=== PATIENT | female | born 1960 | race Caucasian/White ===

== ENCOUNTER → 2016-05-28 | Outpatient (CLI) | payer OTHER ==
[~2016-05-28] MED LIST: DOCU-143 PO; EST.625T; ESTR0.5T PO; ESTR1TAB24 PO; FLX20C PO; HYDR-3812 PO; LEVO50TA PO; METO50TA7 PO; ONDA4TAB11 PO; OXYC-12 PO; SIMV40TA4 PO; SYNTHROID PO
--- OUTSIDE RECORDS SUMMARY | 2016-05-28 11:37 | XMS REPORT | Continuity of Care Document ---
Author Author [facility] Organization [facility] Address Unknown Phone Unavailable Care Team Providers Care Sack Cleaning Hand Name Role Phone Unverified, Unverified PCP Unavailable Source Comments Some departments are not documenting in the electronic medical record. If you do not see the information that you expected, contact Release of Information in the Health Information Management department at [phone] for further assistance in locating additional records.[facility] Active Allergies and Adverse Reactions No Known Allergies Current Medications Prescription Sig. Disp. Refills Start End Date Status Date LEVOTHYROXINE 50 mcg Take 50 mcg by mouth Active tablet Daily. fluoxetine (PROZAC) 20 mg Take 20 mg by mouth Active PO capsule Daily. metoprolol XL (TOPROL XL) Take 50 mg by mouth Active 50 mg PO tablet Daily. simvastatin (ZOCOR) 40 mg Take 40 mg by mouth Active PO tablet Daily. estradiol (ESTRACE) 1 mg Take 1 mg by mouth Daily. Active PO tablet Active Problems Problem Noted Date Depression 04/12/2010 Overview: Depression and anxiety. a. Started on Prozac. Hyperthyroidism 04/12/2010 Overview: Hyperthyroidism: TSH 06/27 of 0.04, being addressed by Dr. Clarke. Follow-up thyroid studies normal per patient. Continuing to monitor carefully. Patient has thyroid nodule. Hypercholesteremia 04/12/2010 Overview: 06/27 cholesterol profile: 218/61/64/142. Followed through Dr. Bolanos's and Tricia's office. ICD (implantable cardiac defibrillator), dual, in situ 05/31/2008 Overview: 1999 ICD implantation. Left chest dual-chamber, RA and RV leads in 1999 (although records unavailable secondary to NSVT placed by Dr. Sanchez. EP study done negative for inducible arrhythmias. 11/2004 Generator replacement with Guidant Vitality DS T125, serial # [id number], chronic RA lead 4464, serial # [id number] and chronic RV lead 0154, serial # [id number]. At ICD generator change, DFT equals 17 joules. 12/12/[address] Sam (EP). ICD placement agreed on by patient. Procedure date unknown. Symptoms of recurrent palpitations improved on Toprol, per records. 06/12/[address] Bolanos. ICD/PPM interrogated and reprogrammed. No events detected. Battery voltage 3.23, charge time 6.9, intrinsic V 4.1, R 10.4, impedance at atrium 445, at ventricular lead 530. Good threshold. Good capture. No changes to PPM settings. No events were recorded. Referred to Dr. Nelson due to relocation of local EP doctor. Two episodes of recurrent shocks since implant in 1999. One episode potentially SVT. Patient asymptomatic, sitting down and "charting". Received an ICD shock, to her knowledge,related to supraventricular arrhythmia. 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 Received multiple ICD shocks apparently for sinus tachycardia. No documented recurrent VT to date. Two zones programmed outside of our office and adjusted through Dr. Bolanos's office. VT at 165 with VF of 188. 05/31/08 ICD Generator Change to Anchor™ D22, Chronic Guidant RA lead 4464 & RV lead 0154 (1999). Paroxysmal ventricular tachycardia (HCC) Overview: History of nonsustained VT and ICD/PPM placement. a. Normal LV function, per patient's report. b. Indication for implant unclear, records unavailable. c. 1999 EP study negative. No records available, however as best as can be discerned, device implanted for VT-done at OSH. Palpitations Most Recent Encounters Date Type Specialty Providers Description 04/23/2016 Hospital Cardiology Blayne Nelson MD Encounter Social History Tobacco Use Types Packs/Day Years Used Date Never Smoker Smokeless Tobacco: Never Used Alcohol Use Drinks/Week oz/Week Comments No Last Filed Vital Signs Vital Sign Reading Time Taken Blood Pressure 110/70 01/15/2016 10:23 AM CDT Pulse 50 01/15/2016 10:23 AM CDT Temperature 36.4 C (97.5 F) 05/31/2008 10:37 AM CDT Respiratory Rate - - Height 1.651 m (5' 5") 01/15/2016 10:23 AM CDT Weight 75.297 kg (166 lb) 01/15/2016 10:23 AM CDT Body Mass Index 27.62 01/15/2016 10:23 AM CDT Oxygen Saturation 99% 05/31/2008 12:15 PM CDT Plan of Care Date Type Specialty Providers Description 07/18/2016 Appointment Cardiology Blayne Nelson MD [address] [facility] [address] [place] [address] [phone] (Fax) 07/18/2016 Appointment Cardiology Blayne Nelson MD [address] [facility] [address] [place] [address] [phone] (Fax) 07/23/2016 Appointment Cardiology Blayne Nelson MD [address] [facility] [address] [place] [address] [phone] (Fax) Health Maintenance Due Date Last Done Comments Hepatitis C Screening 1960 Physical (Comprehensive) 07/31/1967 Exam Pertussis Vaccine 07/31/1971 Tetanus Vaccine 1977 Cervical Cancer Screening 1981 Breast Cancer Screening 2000 Colorectal Cancer 2010 Screening Influenza Vaccine 11/21/2016 Results from Last 3 Months DEVICE EVALUATION - REMOTE ICD (04/24/2016 11:57 AM) Component Value Range Device Implanted By Blayne Nelson M.D. (gen chg.) Advisory Info First implant, 01/01/2000 ADRIA/EOL Indicator GREEN COFFEE BLENDER=2.63V Generator Carpenter Helper Maintenance Medtronic Generator Model # Secura DR [id number] Generator Serial # [id number] Generator Implnat Date 05/31/2008 Atrial Lead Carpenter Helper Maintenance Guidant Atrial Lead Model # 4464 Atrial Lead Serial # [id number] Atrial Lead Implant Date 01/01/2000 RV Lead Carpenter Helper Maintenance Guidant RV Lead Model # 154 RV Lead Serial # [id number] RV Lead Implant Date 01/01/2000 Pacemaker Dependant No Generator Investigational No Atrial Lead No Investigational RV Lead Investigational No Device Type VVI-ICD Wireless Generator Yes Device Mode VVI Lower Rate Limit 40 VT Monitor 150 VT Detect Rate (bpm) 167-188 VT Detect Rate Tx Burst(3), 35J, some OFF FVT Detect Rate (bpm) 188-250 FVT Detect Rate Tx Burst(1), 35J x5 VF Detect Rate (bpm) >188 VF Detect Rate Tx ATP During Charging, 35J x6 Mode Switch Status N/A Date of Last ICM 01/15/16 Evaluation HF Patient Yes Date of Last Programming 01/15/16 Next Programming Check TBD Due Next Remote Check Due 01/23/16 Remote Monitoring? Yes Daily [place] Threshld Off Alert? Average Venticular Rate Off AT/AF On/Off VF Detection/Therapy Off On Date of Last 01/15/16 Interrogation EP Device [facility] Name Device [place] Carelink Express Transmitter Compatible EP Device Followed By MAC Narrative Current Monitoring Period: 04/23/16 through 07/21/16 [04/24/2016 11:57:29 AM - RADHA CLARK] Scheduled Carelink transmission received.Device function appears normal. Battery voltage at 2.64V (ADRIA=2.63V). Events noted since 03/26/16: Ventricular:None. OptiVol and thoracic impedance trends currently do not suggest fluid overload. Please see scanned data sheets for further review as needed.I will route to MPE to sign who follows the patient.
--- NOTE | 2016-05-29 08:15 | ECHOCARDIOGRAPHY REPORT ---
PROCEDURE PHYSICIAN: PEDRO VICKERS DATE OF PROCEDURE: 05/28/2016 TWO DIMENSIONAL ECHOCARDIOGRAM REPORT PRIMARY PHYSICIAN: OTHER PHYSICIAN: REFERRING PHYSICIAN: Dr. Clarke ORDERING PHYSICIAN: INDICATION FOR THE PROCEDURE: Palpitation. MEASUREMENTS DERIVED VALUES LV DIAMETER (LAX) NORMALS NORMALS Diastolic 4.2 (3.6-5.2) Eject. Fract. 60% (60%+/-6%) Systolic (2.3-3.9) Diastolic Vol. % Shortening (0.22-0.42) Systolic Vol. Aortic Root IVS THICKNESS Diastolic 1.1 (0.6-1.1) LVPW THICKNESS Diastolic 1.1 (0.6-1.1) LA DIAMETER Systolic 3.1 (2.1-3.7) FINDINGS: 1. Technical quality is good. 2. The left ventricle is normal in size with normal contractility. Systolic function appeared to be normal. Estimated ejection fraction is 60%. 3. The left atrium is normal in size. No clot or thrombus were seen within the left atrium. 4. The right atrium and right ventricle are normal in size. No clot or thrombus were seen within the right side. 5. Mitral valve is normal in morphology with mild mitral regurgitation noted by color Doppler flow. No mitral valve prolapse. No mitral valve stenosis. 6. Aortic valve is trileaflet with normal opening and closing pattern. No significant aortic stenosis or regurgitation was seen. 7. Tricuspid valve is normal in morphology with mild tricuspid regurgitation noted by color Doppler flow. Doppler across tricuspid valve estimated pulmonary artery pressure of 29+ right atrial pressure. 8. Pulmonic valve is functioning normally. 9. No pericardial effusion. IN CONCLUSION: 1. Normal left ventricular size and systolic function. Estimated ejection fraction 60%. 2. Mild mitral and tricuspid regurgitation. 3. Estimated pulmonary artery pressure of 35 mmHg. Job ID: [id number] Dictated Date: 05/28/2016 17:08:05 Web Press Operator Assistant Date: 05/29/2016 08:13:02 / justine
== END ==
LOC: CARD 11:33
PROVIDERS: ATTEND Physician Assistant
DX: I34.0 Nonrheumatic mitral (valve) insufficiency (principal); E78.2 Mixed hyperlipidemia; R00.2 Palpitations; I47.2 Ventricular tachycardia
CPT/HCPCS: 93306

== ENCOUNTER → 2016-10-06 | Outpatient (CLI) | payer OTHER ==
--- NOTE | 2016-10-06 10:53 | Diagnostic Imaging Report ---
3 views of the thoracic spine. INDICATION: Back pain. FINDINGS: There is minimal left convexity curvature in the thoracic spine, could be positional. This is satisfactory alignment at the posterior spinal line. The vertebral body heights are preserved. Disc heights are also preserved. There are mild anterior osteophytes seen in the mid thoracic spine. Pacemaker with 2 leads is seen. IMPRESSION: Minimal left convexity curvature in the thoracic spine, could be positional. Minimal mid thoracic spine degenerative changes. Dictated by: Dictated on workstation # [id number]
== END ==
LOC: RAD 09:07
PROVIDERS: ATTEND Nurse Practitioner
DX: M54.6 Pain in thoracic spine (principal)
CPT/HCPCS: 72072

== ENCOUNTER → 2016-10-13 | Outpatient (CLI) | payer OTHER ==
[~2016-10-13] MED LIST changes: +CATHETER FLUSH 10 ML SYR IV PRN; +IOHEXOL 350 MG/ML 100 ML (OMNIPAQUE 350) VIAL IV ONE; +NS 100 ML (IVPB) BAG IV ONE
[2016-10-13 11:36] LABS: BLOOD UREA NITROGEN 11 MG/DL (7-18); BUN/CREATININE RATIO 15; CREATININE SERUM 0.75 MG/DL (0.60-1.30); GFR ESTIMATED > 60
--- NOTE | 2016-10-13 13:02 | Diagnostic Imaging Report ---
PROCEDURE: CT chest and abdomen with contrast. TECHNIQUE: Multiple contiguous axial images were obtained through the chest and abdomen after the administration of intravenous contrast. INDICATION: Right thoracic and back pain. Right upper quadrant abdominal pain. CONTRAST: 100 mL of Omnipaque 350 is administered intravenously. FINDINGS: CT chest: The lungs demonstrate no significant consolidation or mass. No suspicious nodule is seen. The thoracic aorta is normal in caliber. There is no mediastinal mass. The heart size is slightly prominent. No pericardial or pleural effusion is seen. No axillary lymphadenopathy is seen. There is a pacemaker seen in the left chest wall with right ventricular and right atrial leads. The osseous structures appear grossly unremarkable. CT abdomen: The liver, the spleen, the pancreas, and adrenal glands appear unremarkable. Colostomy clips are seen. The kidneys have symmetric enhancement and excretion. There is no hydronephrosis. The abdominal aorta is normal in caliber. No para-aortic significantly enlarged lymph nodes seen. The osseous structures appear grossly unremarkable. IMPRESSION: CT chest: The cardiac size is slightly prominent. No acute process. CT abdomen: Unremarkable exam. Dictated by: Dictated on workstation # [id number]
== END ==
LOC: RAD 10:51
PROVIDERS: ATTEND Internal Medicine
DX: M54.6 Pain in thoracic spine (principal); R10.11 Right upper quadrant pain; Z93.3 Colostomy status
CPT/HCPCS: 36415; 71260; 74160; 82565; 84520

== ENCOUNTER → 2016-11-03 | Outpatient (CLI) | payer OTHER ==
[~2016-11-03] MED LIST changes: -CATHETER FLUSH 10 ML SYR IV PRN; -IOHEXOL 350 MG/ML 100 ML (OMNIPAQUE 350) VIAL IV ONE; -NS 100 ML (IVPB) BAG IV ONE
--- NOTE | 2016-11-03 18:51 | Diagnostic Imaging Report ---
EXAMINATION: Digital mammogram bilateral screening with tomosynthesis. INDICATION: Screening. COMPARISON: This study was compared to the prior exam of 10/31/2015, 09/11/2014, and 08/18/2013. At this time, there are no current complaints. The current study was also evaluated with a Computer Aided Detection (CAD) system. FINDINGS: The fibroglandular tissue in both breasts is dense. This does limit the sensitivity of this exam. Overall, there does not appear to have been any significant change when compared to the prior study. No primary or secondary sign of malignancy is noted. 3D tomographic images fail to show any sign of malignancy. The battery pack overlying the pectoralis muscle on the left seen previously is again evident. IMPRESSION: No radiographic evidence for malignancy. ACR BI-RADS Category 1: Negative. Result letter will be mailed to the patient. Note: At least 10% of breast cancer is not imaged by mammography. Dictated by: Dictated on workstation # [id number]
== END ==
LOC: RAD 09:56
PROVIDERS: ATTEND Obstetrics & Gynecology
DX: Z12.31 Encounter for screening mammogram for malignant neoplasm of breast (principal)
CPT/HCPCS: 77067

== ENCOUNTER 2018-01-13 13:22 | Outpatient (CLI) | payer OTHER ==
[~2018-01-13] VITALS: Ht 165.1 cm; Wt 81.6 kg
[~2018-01-13 13:22] MED LIST changes: +ACHD5005 PO; +ASPI-586 PO; +FLUO20CA25 PO; -HYDR-3812 PO; +METO-370 PO
== END 2018-01-13 13:29 | disposition home or self-care (01) ==
LOC: PREOP 13:22
PROVIDERS: ATTEND Surgery
DX: Z01.818 Encounter for other preprocedural examination (principal)

== ENCOUNTER 2018-01-19 12:26 | Day surgery (SDC) | payer OTHER ==
[~2018-01-19] VITALS: Ht 165.1 cm; Wt 81.6 kg
--- OUTSIDE RECORDS SUMMARY | 2018-01-19 12:29 | XMS REPORT | Encounter Summary ---
Author Author [facility] Organization [facility] Address Unknown Phone Unavailable Care Team Providers Care Mortgage Assistant Name Role Phone Blayne Nelson MD Unavailable Abner Clarke MD PCP Encounter Details Date Type Department Care Team Description 12/16/2017 [facility] Cardiovascular Medicine Blayne Nelson MD Encounter Remote Device Check [address] [facility] [phone] [address] [place], [place] [phone] Social History Tobacco Use Types Packs/Day Years Used Date Never Smoker Smokeless Tobacco: Never Used Alcohol Use Drinks/Week oz/Week Comments No Sex Assigned at Date Recorded Not on file as of this encounter Medications at Time of Discharge Medication Sig. Disp. Refills Start Date End Date aspirin 81 mg chewable Chew 81 mg by mouth tablet daily. Take with food. estradiol (ESTRACE) 1 mg Take 1 mg by mouth Daily. PO tablet fluoxetine (PROZAC) 20 mg Take 20 mg by mouth PO capsule Daily. LEVOTHYROXINE 50 mcg Take 50 mcg by mouth tablet Daily. metoprolol XL (TOPROL XL) Take 50 mg by mouth 50 mg PO tablet Daily. simvastatin (ZOCOR) 40 mg Take 40 mg by mouth PO tablet Daily. as of this encounter Plan of Treatment Not on fileas of this encounter Procedures Procedure Name Priority Date/Time Associated Diagnosis Comments DEVICE EVALUATION - Routine 12/16/2017 ICD (implantable Results for this REMOTE ICD 12:05 PM CDT cardioverter-defibrillato procedure are in the r) in place results section. in this encounter Results * DEVICE EVALUATION - REMOTE ICD (12/16/2017 12:05 PM) Device Implanted By Blayne Nelson M.D. (gen chg.) OTHER OUTSIDE LAB Advisory Info First implant, 01/01/2000 OTHER OUTSIDE LAB ADRIA/EOL Indicator ROPE TOW OPERATOR=2.63V OTHER OUTSIDE LAB Generator Hog Dropper Medtronic OTHER OUTSIDE LAB Generator Implnat Date 03/18/2017 OTHER OUTSIDE LAB Atrial Lead Hog Dropper Guidant OTHER OUTSIDE LAB Atrial Lead Model # 4,464 OTHER OUTSIDE LAB Atrial Lead Serial # [id number] OTHER OUTSIDE LAB Atrial Lead Implant Date 01/01/2000 OTHER OUTSIDE LAB RV Lead Hog Dropper Guidant OTHER OUTSIDE LAB RV Lead Model # 154 OTHER OUTSIDE LAB RV Lead Serial # [id number] OTHER OUTSIDE LAB RV Lead Implant Date 01/01/2000 OTHER OUTSIDE LAB Pacemaker Dependant No OTHER OUTSIDE LAB Generator Investigational No OTHER OUTSIDE LAB Atrial Lead No OTHER OUTSIDE LAB Investigational RV Lead Investigational No OTHER OUTSIDE LAB Device Type VVI-ICD OTHER OUTSIDE LAB Wireless Generator Yes OTHER OUTSIDE LAB Device Mode VVI OTHER OUTSIDE LAB Lower Rate Limit 40 OTHER OUTSIDE LAB VT Monitor 162 OTHER OUTSIDE LAB VT Detect Rate (bpm) 176-194 OTHER OUTSIDE LAB VT Detect Rate Tx ATP, Shock OTHER OUTSIDE LAB FVT Detect Rate (bpm) 194-250 OTHER OUTSIDE LAB FVT Detect Rate Tx ATP, Shock OTHER OUTSIDE LAB VF Detect Rate (bpm) >250 OTHER OUTSIDE LAB VF Detect Rate Tx ATP During Charging, 35J x6 OTHER OUTSIDE LAB Mode Switch Status N/A OTHER OUTSIDE LAB HF Patient Yes OTHER OUTSIDE LAB Date of Last Programming 07/06/17 OTHER OUTSIDE LAB Date of Last Remote Check 12/16/17 OTHER OUTSIDE LAB Next Remote Check Due 02/2018 OTHER OUTSIDE LAB Remote Monitoring? Yes OTHER OUTSIDE LAB Daily [place] Threshld On OTHER OUTSIDE LAB Alert? Average Venticular Rate On OTHER OUTSIDE LAB AT/AF On/Off VF Detection/Therapy Off On OTHER OUTSIDE LAB EP Device Followed by Blayne Nelson M.D. (gen chg.) OTHER OUTSIDE LAB Name Device [place] Carelink Express OTHER OUTSIDE LAB Transmitter Compatible EP Device Followed By MARIN OTHER OUTSIDE LAB AT/AF Daily [place] Hours 6 OTHER OUTSIDE LAB Average Vent Rate during 100 OTHER OUTSIDE LAB AT/AF #BPM Average Vent Rate During 6 OTHER OUTSIDE LAB AT/AF #Hours Remote Connectivity Cellular Adaptor OTHER OUTSIDE LAB Accssory Serial Number WireX Cellular Adapter OTHER OUTSIDE LAB Known Diagnosed AFib No OTHER OUTSIDE LAB On Anticoagulation No OTHER OUTSIDE LAB Known Diagnosed VT VT Yes OTHER OUTSIDE LAB ATP No OTHER OUTSIDE LAB Device Shock No OTHER OUTSIDE LAB Device Remote Manual Yes OTHER OUTSIDE LAB Downloads Atrial Lead Fixation active fixation OTHER OUTSIDE LAB Atrial Lead Polarity Bipolar OTHER OUTSIDE LAB Atrial Lead Pin Connector IS1 OTHER OUTSIDE LAB RV Lead Fixation active fixation OTHER OUTSIDE LAB RV Lead Coil Dual OTHER OUTSIDE LAB Atrial Lead Diaph. na OTHER OUTSIDE LAB Stimulation RV Lead Diaph. na OTHER OUTSIDE LAB Stimulation Generator Model # EVERA XT [id number] OTHER OUTSIDE LAB Generator Serial # [id number] OTHER OUTSIDE LAB Date of Last 08/04/17 OTHER OUTSIDE LAB Interrogation Remote Check? Yes OTHER OUTSIDE LAB Narrative Performed At OTHER OUTSIDE LAB Current monitoring period 12/16/17 to 03/17/18. [12/16/2017 12:27:03 PM - PATRICA CHRISTINA] Scheduled Carelink transmission received for dual chamber ICD. Device function appears normal. Presenting EGM shows SB 47 bpm. Battery longevity 10.7 years. Events noted since 09/16/17: Atrial:0. Ventricular:0. Thoracic Impedance trend is stable for this patient. Please see scanned data sheets for further review. Next follow up appt 01/2018 MPR/device. Next remote scheduled for 02/2018. Results routed to E for signature and review. Performing Organization Address City/State/Zipcode Phone Number OTHER OUTSIDE LAB in this encounter Visit Diagnoses Diagnosis ICD (implantable cardioverter-defibrillator) in place
--- OUTSIDE RECORDS SUMMARY | 2018-01-19 12:29 | XMS REPORT | Clinical Summary ---
Author Author [facility] Organization [facility] Address Unknown Phone Unavailable Care Team Providers Care Warp Clamper Name Role Phone Blayne Nelson MD Unavailable Abner Clarke MD PCP Source Comments Some departments are not documenting in the electronic medical record. If you do not see the information that you expected, contact Release of Information in the Health Information Management department at [phone] for further assistance in locating additional records.[facility] Allergies No Known Allergies Current Medications Prescription Sig. [...] mg by mouth Daily. Active PO tablet aspirin 81 mg chewable Chew 81 mg by mouth Active tablet daily. Take with food. Active Problems Problem Noted Date Depression 04/12/2010 Overview: Depression and anxiety. a. Started on Prozac. Hyperthyroidism 04/12/2010 Overview: Hyperthyroidism: TSH 06/27 of 0.04, being addressed by Dr. Clarke. Follow-up thyroid studies normal per patient. Continuing to monitor carefully. Patient has thyroid nodule. Hypercholesteremia 04/12/2010 Overview: 06/27 cholesterol profile: 218/61/64/142. Followed through Dr. Bolanos's and Tricia's office. Dual implantable cardioverter-defibrillator in situ 05/31/2008 Overview: 2000 ICD implantation. Left chest dual-chamber, RA and RV leads in 1999 (although records unavailable secondary to NSVT placed by Dr. Sanchez. EP study done negative for inducible arrhythmias. 11/2004 Generator replacement with Guidant Vitality DS T125, serial # [id number], chronic RA lead 4464, serial # [id number] and chronic RV lead 0154, serial # [id number]. At ICD generator change, DFT equals 17 [...] of 188. 05/31/08 ICD Generator Change to TheOfficialBoardrafael SCHILLING D22, Chronic Guidant RA lead 4464 & RV lead 0154 (1999). Paroxysmal ventricular tachycardia (HCC) Overview: History of nonsustained VT and ICD/PPM placement. a. Normal LV function, per patient's report. b. Indication for implant unclear, records unavailable. c. 1999 EP study negative. No records available, however as best as can be discerned, device implanted for VT-done at OSH. Palpitations Encounters Date Type Specialty Care Team Description 12/16/2017 Hospital Cardiology Blayne Nelson MD Encounter from Last 3 Months Family History Medical History Relation Name Comments Hypertension Mother Stroke Mother Relation Name Status Comments Father Alive Mother (Age 77) Sister Alive Social History Tobacco Use Types Packs/Day Years Used Date Never Smoker Smokeless Tobacco: Never Used Alcohol Use Drinks/Week oz/Week Comments No Sex Assigned at Date Recorded Not on file Last Filed Vital Signs Vital Sign Reading Time Taken Blood Pressure 124/60 08/04/2017 11:56 AM CDT Pulse 52 08/04/2017 11:56 AM CDT Temperature 36.6 C (97.9 F) 03/18/2017 9:04 AM EXECUTIVE TALENT ACQUISITION CONSULTANT Respiratory Rate - - Oxygen Saturation 97% 08/04/2017 11:56 AM CDT Inhaled Oxygen - - Concentration Weight 80.7 kg (178 lb) 08/04/2017 11:56 AM CDT Height 165.1 cm (5' 5") 08/04/2017 11:56 AM CDT Body Mass Index 29.62 08/04/2017 11:56 AM CDT Plan of Treatment Health Maintenance Due Date Last Done Comments HEPATITIS C SCREENING 1960 PHYSICAL (COMPREHENSIVE) 07/31/1967 EXAM PERTUSSIS VACCINE 07/31/1971 HIV SCREENING 07/31/1975 TETANUS VACCINE 1977 CERVICAL CANCER SCREENING 1990 BREAST CANCER SCREENING 2000 COLORECTAL CANCER 2010 SCREENING SHINGLES RECOMBINANT 2010 VACCINE (1 of 2) INFLUENZA VACCINE 10/21/2017 Implants Implanted Type Area Market Master Device Expiration Model / Identifier Date Serial / Lot Medtronic ICD Procedures Procedure Name Priority Date/Time Associated Diagnosis Comments DEVICE EVALUATION - Routine 12/16/2017 ICD (implantable Results for this REMOTE ICD 12:05 PM CDT cardioverter-defibrillato procedure are in the r) in place results section. from Last 3 Months Results * DEVICE EVALUATION - REMOTE ICD (12/16/2017 12:05 PM) Device Implanted By Blayne Nelson M.D. (gen chg.) OTHER OUTSIDE LAB Advisory Info First implant, 01/01/2000 OTHER OUTSIDE LAB ADRIA/EOL Indicator CONSTRUCTION ESTIMATOR=2.63V OTHER OUTSIDE LAB Generator Market Master Medtronic OTHER OUTSIDE LAB Generator Implnat Date 03/18/2017 OTHER OUTSIDE LAB Atrial Lead Market Master Guidant OTHER OUTSIDE LAB Atrial Lead Model # 4,165 OTHER OUTSIDE LAB Atrial Lead Serial # [id number] OTHER OUTSIDE LAB Atrial Lead Implant Date 01/01/2000 OTHER OUTSIDE LAB RV Lead Market Master Guidant OTHER OUTSIDE LAB RV Lead Model # 154 OTHER OUTSIDE LAB RV Lead Serial # [id number] OTHER OUTSIDE LAB RV Lead Implant Date [...] Remote Monitoring? Yes OTHER OUTSIDE LAB Daily [place] Threshld On OTHER OUTSIDE LAB Alert? Average Venticular Rate On OTHER OUTSIDE LAB AT/AF On/Off VF Detection/Therapy Off On OTHER OUTSIDE LAB EP Device Followed by Blayne Nelson M.D. (gen chg.) OTHER OUTSIDE LAB Name Device [place] [facility]link Express OTHER OUTSIDE LAB Transmitter Compatible EP Device Followed By MARIN OTHER OUTSIDE LAB AT/AF Daily [place] Hours 6 OTHER OUTSIDE LAB Average Vent [...] LAB Stimulation Generator Model # EVERA XT [id number] OTHER OUTSIDE LAB Generator Serial # [id number] OTHER OUTSIDE LAB Date of Last 08/04/17 [...] Address City/State/Zipcode Phone Number OTHER OUTSIDE LAB from Last 3 Months
--- OUTSIDE RECORDS SUMMARY | 2018-01-19 12:30 | XMS REPORT | Continuity of Care Document ---
Author Author [facility] Organization [facility] Address Unknown Phone Unavailable Allergies Active Description Code Type Severity Reaction Onset Reported/Identified Relationship to Patient Clinical Status Yes No Known Drug Allergies [id number] Drug Allergy Mild N/A 09/02/2007 Medications There is no data. Problems Date Dx Coded Attending Type Code Diagnosis Diagnosed By 02/20/2014 BRENNAN GRAY MD Ot 723.1 02/20/2014 BRENNAN GRAY MD Ot V57.1 03/23/2014 BRENNAN GRAY MD Ot 723.1 03/23/2014 BRENNAN GRAY MD Ot 782.0 03/23/2014 BRENNAN GRAY MD Ot 723.1 03/23/2014 BRENNAN GRAY MD Ot V57.1 03/23/2014 MURIEL ARELLANO MD Ot 873.0 03/23/2014 ADAN TRISTAN, MURIEL D Ot 959.01 03/23/2014 MURIEL ARELLANO MD Ot E000.8 03/23/2014 ADAN TRISTAN, MURIEL Holman Ot E849.0 03/23/2014 MURIEL ARELLANO MD D Ot E884.2 03/23/2014 MURIEL ARELLANO MD Ot V06.1 04/13/2014 BRENNAN GRAY MD Ot 723.1 04/13/2014 BRENNAN GRAY MD Ot V57.1 04/18/2014 BRENNAN GRAY MD Ot 723.1 04/18/2014 BRENNAN GRAY MD Ot V57.1 04/21/2014 BRENNAN GRAY MD Ot 723.1 04/21/2014 BRENNAN GRAY MD Ot V57.1 09/29/2014 SOFIA TRISTAN, BRAYDEN Romero Ot V76.12 11/06/2014 ERNIE WILLS APRN Ot 789.04 12/26/2014 PEDRO VICKERS MD Ot 416.8 12/26/2014 PEDRO VICKERS MD Ot 424.0 12/26/2014 ALEE TRISTAN, PEDRO Layne Ot 424.2 12/26/2014 PEDRO VICKERS MD Ot 785.1 01/04/2015 MAIRNA TRISTAN, BRENNAN Hloman Ot 723.1 01/04/2015 BRENNAN GRAY MD Ot 782.0 01/04/2015 SOFIA TRISTAN, BRAYDEN Romero Ot V76.12 01/04/2015 ERNIE WILLS APRN Ot 789.04 01/04/2015 [place] SORAIDA MEHTA Ot K82.4 01/04/2015 [place] SORAIDA MEHTA Ot Z01.818 01/04/2015 [place] SORAIDA MEHTA Ot Z11.2 01/04/2015 PEDRO VICKERS MD Ot 416.8 01/04/2015 ALEE TRISTAN, PEDRO Layne Ot 424.0 01/04/2015 PEDRO VICKERS MD Ot 424.2 01/04/2015 PEDRO VICKERS MD Ot 785.1 01/04/2015 [place] SORAIDA MEHTA Ot K81.1 11/01/2015 BRAYDEN BLACK MD Ot Z12.31 ENCNTR SCREEN MAMMOGRAM FOR MALIGNANT NE 11/02/2015 BRAYDEN BLACK MD Ot Z12.31 ENCNTR SCREEN MAMMOGRAM FOR MALIGNANT NE 05/28/2016 BRAYDEN BLACK MD Ot Z12.31 ENCNTR SCREEN MAMMOGRAM FOR MALIGNANT NE 05/29/2016 JULIA MARY Ot E78.2 MIXED HYPERLIPIDEMIA 05/29/2016 JULIA MARY Ot I34.0 NONRHEUMATIC MITRAL (VALVE) INSUFFICIENC 05/29/2016 JULIA MARY Ot I47.2 VENTRICULAR TACHYCARDIA 05/29/2016 JULIA MARY Ot R00.2 PALPITATIONS 06/03/2016 JULIA MARY Ot E78.2 MIXED HYPERLIPIDEMIA 06/03/2016 JULIA MARY Ot I34.0 NONRHEUMATIC MITRAL (VALVE) INSUFFICIENC 06/03/2016 JULIA MARY Ot I47.2 VENTRICULAR TACHYCARDIA 06/03/2016 JULIA MARY Ot R00.2 PALPITATIONS 09/17/2016 JULIA MARY Ot E78.2 MIXED HYPERLIPIDEMIA 09/17/2016 JULIA MARY Ot I34.0 NONRHEUMATIC MITRAL (VALVE) INSUFFICIENC 09/17/2016 JULIA MARY Ot I47.2 VENTRICULAR TACHYCARDIA 09/17/2016 JULIA MARY Ot R00.2 PALPITATIONS 11/12/2016 BRENNAN GRAY MD Ot M54.6 PAIN IN THORACIC SPINE 11/12/2016 BRENNAN GRAY MD Ot R10.11 RIGHT UPPER QUADRANT PAIN 11/12/2016 BRENNAN GRAY MD Ot Z93.3 COLOSTOMY STATUS 01/13/2018 SORAIDA VANCE DO Ot Z01.818 ENCOUNTER FOR OTHER PREPROCEDURAL EXAMIN 01/13/2018 SORAIDA VANCE DO, Ot Z01.818 ENCOUNTER FOR OTHER PREPROCEDURAL EXAMIN 01/13/2018 SORAIDA VANCE DO, Ot Z01.818 ENCOUNTER FOR OTHER PREPROCEDURAL EXAMIN Procedures There is no data. Results Test Result Range [id number] - 10/13/16 11:13 Serum or plasma urea nitrogen measurement (mass/volume) 11 mg/dL 7-18 Serum or plasma creatinine measurement (mass/volume) 0.75 mg/dL 0.60-1.30 Serum or plasma urea nitrogen/creatinine mass ratio 15 NRG Serum or plasma creatinine measurement with calculation of estimated glomerular filtration rate > NRG Encounters ACCT No. Visit Date/Time Discharge Status Pt. Type Provider Facility Loc./Unit Complaint [id number] 01/12/2018 05:34:00 01/12/2018 23:59:59 CLS Outpatient SORAIDA VANCE DO [facility] PREOP COLONOSCOPY [id number] 11/03/2016 09:56:00 11/03/2016 23:59:59 CLS Outpatient BRAYDEN BLACK MD [facility] RAD SCREENING Z12.31 [id number] 10/22/2016 08:55:00 10/22/2016 23:59:59 CLS Preadmit ERNIE WILLS APRN [facility] REHAB THORACIC PAIN/SPASM/ MINIMAL DEG CHANGES [id number] 10/13/2016 10:51:00 10/13/2016 23:59:59 CLS Outpatient BRENNAN GRAY MD [facility] RAD RT THORACIC BACK PAIN [id number] 10/06/2016 09:07:00 10/06/2016 23:59:59 CLS Outpatient ERNIE WILLS APRN [facility] RAD BACK PAIN [id number] 05/28/2016 11:33:00 05/28/2016 23:59:59 CLS Outpatient JULIA MARY [facility] CARD MR, PALPITATIONS [id number] 10/31/2015 09:48:00 10/31/2015 23:59:59 CLS Outpatient BRAYDEN BLACK MD [facility] RAD ROUTINE SCREENING [id number] 01/04/2015 06:00:00 01/04/2015 13:20:00 DIS Outpatient SORAIDA VANCE DO [facility] SDC [id number] 12/28/2014 09:56:00 12/28/2014 23:59:59 CLS Outpatient SORAIDA VANCE DO [facility] PREOP [id number] 12/11/2014 09:46:00 12/11/2014 23:59:59 CLS Outpatient PEDRO VICKERS MD [facility] CARD [id number] 10/18/2014 07:57:00 10/18/2014 23:59:59 CLS Outpatient ERNIE WILLS APRN [facility] RAD [id number] 09/11/2014 11:11:00 09/11/2014 23:59:59 CLS Outpatient BRAYDEN BLACK MD [facility] RAD [id number] 03/22/2014 08:30:00 04/21/2014 10:52:00 DIS Outpatient BRENNAN GRAY MD [facility] REHAB [id number] 03/23/2014 12:44:00 03/23/2014 14:04:00 DIS Emergency MURIEL ARELLANO MD [facility] ER [id number] 01/04/2014 10:04:00 01/04/2014 23:59:59 CLS Outpatient BRENNAN GRAY MD [facility] RAD [id number] 08/18/2013 08:50:00 08/18/2013 23:59:59 CLS Outpatient [id number] 01/16/2013 09:58:00 01/16/2013 10:00:00 DIS Emergency [id number] 11/10/2012 08:54:00 11/10/2012 23:59:59 CLS Outpatient [id number] 08/02/2012 11:04:00 08/02/2012 23:59:59 CLS Outpatient [id number] 01/19/2018 12:45:00 PEN Preadmit SORAIDA VANCE DO [facility] ENDO SCREENING
[2018-01-19] MEDS ORDERED: LACTATED RINGERS 1,000 ML IV STA (12:37)
[2018-01-19] MEDS ORDERED: LACTATED RINGERS 1,000 ML IV ONE (12:37)
[2018-01-19 12:49] VITALS: BP 121/64
[2018-01-19] MEDS ORDERED: proPOfol 200 MG/20 ML (DIPRIVAN) VIAL IV ONE (13:03)
[2018-01-19] MEDS ORDERED: MIDAZOLAM 2 MG/2 ML (VERSED) VIAL ONE (13:03)
--- NOTE | 2018-01-19 13:06 | Progress Note-Pre Operative ---
Pre-Operative Progress Note H&P Reviewed The H&P was reviewed, patient examined and no changes noted. Date Seen by Provider: Jan 19, 2018 Time Seen by Provider: 13:05 Date H&P Reviewed: Jan 19, 2018 Time H&P Reviewed: 13:05 Pre-Operative Diagnosis: screening colonoscopy, family history colon cancer SORAIDA VANCE DO Jan 19, 2018 13:05
--- NOTE | 2018-01-19 14:20 | Progress Note-Post Operative ---
Post-Operative Progess Note Surgeon (s)/Mechanical Artist (s) Surgeon SORAIDA VANCE DO Mechanical Artist: na Pre-Operative Diagnosis screening colonoscopy, family history colon cancer Post-Operative Diagnosis normal colon Procedure & Operative Findings Date of Procedure 01/19/18 Procedure Performed/Findings colonoscopy Anesthesia Type per revenue liaison Estimated Blood Loss Estimated blood loss (mL): none Specimens/Packing Specimens Removed na SORAIDA VANCE DO Jan 19, 2018 14:20
--- NOTE | 2018-01-19 14:22 | Discharge Inst-Simple/Standard ---
Discharge Inst-Standard Patient Instructions/Follow Up Plan of Care/Instructions/FU: return to clinic on as needed basis. repeat colonoscopy in 5 years, any issues before that be seen at that time. Activity as Tolerated: Yes Discharge Diet: Regular Diet SORAIDA VANCE DO Jan 19, 2018 14:22
[2018-01-19 14:30] VITALS: BP 104/51
[2018-01-19 15:00] VITALS: BP 105/46
[2018-01-19 15:20] VITALS: BP 105/46
--- NOTE | 2018-01-19 19:18 | OPERATIVE REPORT ---
DATE OF SERVICE: 01/19/2018 PREOPERATIVE DIAGNOSES: Screening colonoscopy, family history of colon cancer. POSTOPERATIVE DIAGNOSIS: Normal colon. SURGEON: Soraida Guevara DO. PROCEDURE PERFORMED: Colonoscopy. ANESTHESIA: Per PATIENT ACCESS DIRECTOR. ESTIMATED BLOOD LOSS: None. COMPLICATIONS: None. INDICATIONS: The patient is a 57-year-old female due for screening colonoscopy. She understands risks and benefits of procedure and wished to proceed with procedure. Consent was signed in the chart. DESCRIPTION OF PROCEDURE: The patient was taken to the endoscopy suite, placed in left lateral recumbent position. Timeout was performed. Digital rectal exam was performed. No palpable polyps, mass or ulcerations. The scope was inserted in the rectum and advanced all the way to the cecum with minimal difficulty. Prep was adequate. Scope was then slowly retracted back. There were no polyps, masses or ulcerations in the cecum, ascending, transverse, descending and sigmoid colon. Once in the rectum, scope was retroflexed noting no other pathology. Scope was returned to its normal position, slowly withdrawn until completely removed, noting no other pathology. The patient tolerated the procedure. She was taken to recovery room in stable condition. RECOMMENDATIONS: The patient will need repeat colonoscopy in 5 years. If she has any problems prior to that, she should be reevaluated at that time. Job ID: [id number] DocumentID: [id number] Dictated Date: 01/19/2018 14:24:49 Dovetail Machine Operator Date: 01/19/2018 19:17:28 Dictated By: SORAIDA GUEVARA DO
== END 2018-01-19 15:15 | disposition home or self-care (01) ==
LOC: ENDO 12:26
PROVIDERS: ATTEND Surgery
DX: Z12.11 Encounter for screening for malignant neoplasm of colon (principal); Z80.0 Family history of malignant neoplasm of digestive organs; I10 Essential (primary) hypertension; I27.20 Pulmonary hypertension, unspecified; I08.1 Rheumatic disorders of both mitral and tricuspid valves; Z79.82 Long term (current) use of aspirin; Z79.899 Other long term (current) drug therapy; Z95.810 Presence of automatic (implantable) cardiac defibrillator

== ENCOUNTER → 2018-02-02 | Outpatient (CLI) | payer OTHER ==
--- NOTE | 2018-02-03 10:54 | Diagnostic Imaging Report ---
Indication: Routine screening. Comparison is made with prior mammograms from 11/03/2016 and 10/31/2015. 2-D and 3-D bilateral screening mammography was performed with CAD. Both breasts remain heterogeneously dense, limiting the sensitivity of mammography. The parenchymal pattern is stable. The pacemaker battery pack in the left axilla does limit the study. No mass or malignant appearing microcalcifications are seen. Benign calcifications are present. Impression: BI-RADS category 2. No mammographic features suspicious for malignancy are identified. ACR BI-RADS Category 2: Benign findings. Result letter will be mailed to the patient. Note: At least 10% of breast cancer is not imaged by mammography. Dictated by: Dictated on workstation # [id number]
== END ==
LOC: RAD 09:37
PROVIDERS: ATTEND Obstetrics & Gynecology
DX: Z12.31 Encounter for screening mammogram for malignant neoplasm of breast (principal)
CPT/HCPCS: 77067

== ENCOUNTER → 2018-11-29 | Outpatient (CLI) | payer OTHER ==
[~2018-11-29] MED LIST changes: +HOLD METFORMIN - RECEIVED CONTRAST 20 ML VIAL IV SCH; +IOHEXOL 350 MG/ML 100 ML (OMNIPAQUE 350) VIAL IV ONE; +NS 100 ML (IVPB) BAG IV ONE
--- NOTE | 2018-11-29 08:49 | Diagnostic Imaging Report ---
PROCEDURE: CT abdomen and pelvis with contrast. TECHNIQUE: Multiple contiguous axial images were obtained through the abdomen and pelvis after administration of intravenous contrast. Auto Exposure Controls were utilized during the CT exam to meet ALARA standards for radiation dose reduction. INDICATION: Right lower pelvic pain. Correlation is made with prior CT abdomen from 10/13/2016. FINDINGS: The lung bases are clear. No discrete liver mass is identified. The gallbladder is surgically absent. No biliary ductal dilatation is seen. The pancreas and spleen are unremarkable. No adrenal mass is detected. Kidneys are unremarkable. No hydronephrosis is detected. The aorta is nonaneurysmal. No central retroperitoneal or mesenteric lymphadenopathy is identified. The small and large bowel loops are normal caliber. No obstruction is seen. There is no ascites. Partially filled urinary bladder is unremarkable. Uterus appears to be surgically absent. No definite pelvic lymphadenopathy is seen. No inflammatory changes are identified. IMPRESSION: Essentially unremarkable CT of the abdomen and pelvis. No acute abnormality is detected. Dictated by: Dictated on workstation # [id number]
== END ==
LOC: RAD 08:00
PROVIDERS: ATTEND Internal Medicine
DX: R10.2 Pelvic and perineal pain (principal); Z90.49 Acquired absence of other specified parts of digestive tract
CPT/HCPCS: 74177

== ENCOUNTER → 2019-02-21 | Outpatient (CLI) | payer OTHER ==
[~2019-02-21] MED LIST changes: -HOLD METFORMIN - RECEIVED CONTRAST 20 ML VIAL IV SCH; -IOHEXOL 350 MG/ML 100 ML (OMNIPAQUE 350) VIAL IV ONE; -NS 100 ML (IVPB) BAG IV ONE
== END ==
LOC: CARD 10:25
PROVIDERS: ATTEND Physician Assistant
DX: I08.1 Rheumatic disorders of both mitral and tricuspid valves (principal); E78.2 Mixed hyperlipidemia; I27.20 Pulmonary hypertension, unspecified; I47.2 Ventricular tachycardia
CPT/HCPCS: 93306

== ENCOUNTER → 2019-08-24 | Outpatient (CLI) | payer OTHER ==
[~2019-08-24] MED LIST changes: -FLUO20CA25 PO; +FLUO20CA46 PO; -METO-370 PO; +SIMV40TA25 PO; -SIMV40TA4 PO
--- NOTE | 2019-08-24 11:03 | Diagnostic Imaging Report ---
INDICATION: Routine screening. Comparison is made with prior mammogram 02/02/2018 and 11/03/2016. 2-D and 3-D bilateral screening mammography was performed with CAD. The current study was also evaluated with a Computer Aided Detection (CAD) system. Both breasts remain heterogeneously dense, limiting the sensitivity of mammography. There are benign parenchymal and vascular calcifications bilaterally. The parenchymal pattern is stable. Pacemaker battery pack does obscure portions of the left breast. No mass or malignant appearing microcalcifications are seen. Axillae are unremarkable. IMPRESSION: No mammographic features suspicious for malignancy are identified. ACR BI-RADS Category 2: Benign findings. Result letter will be mailed to the patient. Note: At least 10% of breast cancer is not imaged by mammography. Dictated by: Dictated on workstation # [id number]
== END ==
LOC: RAD 09:29
PROVIDERS: ATTEND Obstetrics & Gynecology
DX: Z12.31 Encounter for screening mammogram for malignant neoplasm of breast (principal); Z95.0 Presence of cardiac pacemaker
CPT/HCPCS: 77063; 77067

== ENCOUNTER → 2020-09-12 | Outpatient (CLI) | payer OTHER ==
--- NOTE | 2020-09-12 14:15 | Diagnostic Imaging Report ---
INDICATION: Routine screening. Comparison is made with prior mammogram 08/24/2019, 02/02/2018. 2-D and 3-D bilateral screening mammography was performed with CAD. Both breast are heterogeneously dense, limiting the sensitivity of mammography. Pacemaker battery pack is located left axilla. Overall breast parenchyma appears to be stable. No mass or malignant appearing microcalcifications are seen. There are scattered benign calcifications present. Right axilla is unremarkable. IMPRESSION: BI-RADS Category 2 No mammographic features suspicious for malignancy are identified. ACR BI-RADS Category 2: Benign findings. Result letter will be mailed to the patient. Note: At least 10% of breast cancer is not imaged by mammography. Dictated by: Dictated on workstation # [id number]
== END ==
LOC: RAD 10:48
PROVIDERS: ATTEND Obstetrics & Gynecology
DX: Z12.31 Encounter for screening mammogram for malignant neoplasm of breast (principal)
CPT/HCPCS: 77063; 77067

== ENCOUNTER → 2021-09-16 | Outpatient (CLI) | payer OTHER ==
[~2021-09-16] MED LIST changes: -FLUO20CA46 PO; +FLUO20CA48 PO
--- NOTE | 2021-09-16 14:03 | Diagnostic Imaging Report ---
Indication: Routine screening. Comparison is made with prior mammogram 09/12/2020 and 08/24/2019. 2-D and 3-D bilateral screening mammography was performed with CAD. CAD is utilized. The current study was also evaluated with a Computer Aided Detection (CAD) system. Both breasts are heterogeneously dense, limiting the sensitivity of mammography. The parenchymal pattern is stable. No mass or malignant-appearing microcalcifications are seen. There are scattered benign parenchymal and vascular calcifications bilaterally. Pacemaker battery package is located in left axilla. IMPRESSION: BI-RADS Category 2 No mammographic features suspicious for malignancy are identified. ACR BI-RADS Category 2: Benign findings. Result letter will be mailed to the patient. Note: At least 10% of breast cancer is not imaged by mammography. Dictated by: Dictated on workstation # [id number]
== END ==
LOC: RAD 09:47
PROVIDERS: ATTEND Obstetrics & Gynecology
DX: Z12.31 Encounter for screening mammogram for malignant neoplasm of breast (principal)
CPT/HCPCS: 77063; 77067

== ENCOUNTER → 2022-04-30 | Outpatient (CLI) | payer OTHER ==
[~2022-04-30] MED LIST changes: +REGADENOSON 0.4 MG/5 ML SYR (LEXISCAN) IV ONE
[2022-04-30] MEDS: CATHETER FLUSH 10 ML SYR IVP PRN ×2 (12:00→12:56)
[2022-04-30 12:52] VITALS: BP 132/68
== END ==
LOC: CARD 10:38
PROVIDERS: ATTEND Physician Assistant
DX: I10 Essential (primary) hypertension (principal)
CPT/HCPCS: 78452; 93017; A9502; C8929; 93306

== ENCOUNTER 2022-05-14 09:00 | Day surgery (SDC) | payer OTHER ==
[~2022-05-14] VITALS: Ht 165.1 cm; Wt 91.5 kg
[2022-05-14] VITALS (9 sets, daily range): BP systolic 102–140; BP diastolic 40–66
--- NOTE | 2022-05-14 07:36 | Diagnostic Imaging Report ---
EXAMINATION: Chest radiograph, portable AP view. DATE: 05/14/2022 7:23 AM. INDICATION: 61-year-old female, abnormal stress test. Chest pain. COMPARISON: None. FINDINGS: There is a left-sided cardiac assist device and leads. The leads appear intact. Heart size and mediastinal contours are unremarkable. There is no identified pneumothorax. There is no large pleural effusion. There is no identified focal airspace consolidation. IMPRESSION: No identified acute cardiopulmonary abnormality. Dictated by: Dictated on workstation # [id number]
--- NOTE | 2022-05-14 07:47 | Cardiac Procedure Note-CS/ASA ---
Pre-Procedure Note Pre-Op Procedure Note Date of Available H&P: May 05, 2022 Date H&P Reviewed: May 14, 2022 Time H&P Reviewed: 07:46 History & Physical: H&P Reviewed, Patient Examed, No changes noted Pre-Operative Diagnosis: CAD Conscious Sedation Pre-Proced Time 07:46 ASA Score 3 For ASA 3 and 4: Consider anesthesia and medical clearance. Also, for patients with a history of failed moderate sedation consider anesthesia. Airway Lungs Heart ASA score ASA 1: a normal healthy patient ASA 2: a patient with a mild systemic disease (mid diabetes, controlled hypertension, obesity ASA 3: a patient with a severe systemic disease that limits activity (angina, COPD, prior Myocardial infarction) ASA 4: a patient with an incapacitating disease that is a constant threat to life (CHF, renal failure) ASA 5: a moribund patient not expected to survive 24 hrs. (ruptured aneurysm) ASA 6: a declared brain- patient whose organs are being harvested. For emergent operations, add the letter E after the classification Mallampati Classification Grade 3 Sedation Plan Analgesia, Amnesia, Plan communicated to team members, Discussed options with patient/fam, Discussed risks with patient/fam The patient is an appropriate candidate to undergo the planned procedure, sedation, and anesthesia. The patient immediately re-assessed prior to indication. PEDRO VICKERS MD May 14, 2022 07:47
[2022-05-14 07:50] LABS: CLARITY,URINE SL CLOUDY; COLOR,URINE DARK YELLOW; GLUCOSE, URINE (UA) NEGATIVE (NEGATIVE); KETONES,URINE NEGATIVE (NEGATIVE); LEUKOCYTE ESTERASE ,URINE NEGATIVE (NEGATIVE); NITRITE,URINE NEGATIVE (NEGATIVE); PROTEIN,URINE 1+ (NEGATIVE)
[2022-05-14 07:51] LABS: HEMATOCRIT 38 % (35-52); HEMOGLOBIN 12.7 g/dL (11.5-16.0); MEAN CORPUSCULAR HEMOGLOBIN 29 pg (25-34); MEAN CORPUSCULAR HGB CONC 33 g/dL (32-36); MEAN CORPUSCULAR VOLUME 87 fL (80-99); MEAN PLATELET VOLUME 9.4 fL (9.0-12.2); PLATELET COUNT 222 10^3/uL (130-400); WHITE BLOOD COUNT 5.2 10^3/uL (4.3-11.0)
[2022-05-14 08:08] LABS: BILIRUBIN,URINE 1+ (NEGATIVE)
[2022-05-14 08:09] LABS: BACTERIA,URINE FEW /HPF; RBC,URINE RARE /HPF; WBC,URINE RARE /HPF
[2022-05-14 08:10] LABS: ALBUMIN 4.1 GM/DL (3.2-4.5); BILIRUBIN,TOTAL 0.6 MG/DL (0.1-1.0); CALCIUM 8.9 MG/DL (8.5-10.1); CREATININE SERUM 0.77 MG/DL (0.60-1.30); POTASSIUM 3.9 MMOL/L (3.6-5.0); TOTAL PROTEIN 7.2 GM/DL (6.4-8.2)
--- NOTE | 2022-05-14 08:40 | Discharge Inst-Post CATH ---
Discharge Inst-CATH/EP Problems Reviewed?: Yes Post Cardiac Cath/EP D/C Inst Follow Up/Plan Appointment with Dr. Bolanos's office in 2 to 4 weeks <b>CARDIAC CATH/EP PROCEDURE DISCHARGE INSTRUCTIONS</b> ACTIVITY * Go Home directly and rest. * Limit activity of the leg (or wrist if it was used) for 7 days including aer obics, swimming, jogging, bicycling, etc. * Restrict stair-climbing for 7 days if possible, if not, climb up with your non-cath leg, then bring together on the same step. * Avoid lifting, pushing, pulling or excessive movement of the affected extremi ty for 7 days. * Customary sexual activity may be resumed after 2 days-use caution not to use a position that strains or causes pain to the affected extremity. * No driving for 24 hours. * NO SMOKING. * Avoid straining for bowel movements for 7 days. * Gentle walking on level ground is allowed. * Returning to work will depend on the type of procedure and the results. Your doctor will discuss this with you. CALL YOUR DOCTOR FOR ANY OF THE FOLLOWING: *If bleeding from the puncture site occurs- Apply gentle pressure to site with clean cloth and call your doctor or EMS. * If a knot or lump forms under the skin, increases in size, or causes pain. * If bruising appears to be worsening or moving further down your leg instead of disappearing. * Temperature above 101 F. CARE OF YOUR GROIN INCISION; * Bruising or purple discoloration of the skin near the puncture site is common. * You may shower only, no bathtub bathing for 5 days. Be careful to avoid slipping as your leg may feel stiff. * If a closure device was used on your femoral artery, please see the attached guide regarding care of the device and your leg. * Leave dressing on FOR 24 hours. CARE OF YOUR WRIST INCISION; * Bruising or purple discoloration of the skin near the puncture site is common. * You may shower. * DO NOT submerge wrist. * Leave dressing on FOR 24 hours. PEDRO BOLANOS MD May 14, 2022 08:40
--- NOTE | 2022-05-14 08:43 | Cardiac Cath Report ---
Cardiac Cath Report Physician (s)/Senior Adults Director (s) Physician PEDRO VICKERS MD Pre-Procedure Diagnosis Pre-Procedure Diagnosis: CAD Post-Procedure Note Procedure Start Date: May 14, 2022 Name of Procedure: Left heart catheterization Findings/Procedure Note PROCEDURE NOTE: 61-year-old lady with history of ventricular tachycardia, has ICD, had an abnormal stress test, scheduled for cardiac catheterization possible PTCA. After explaining the procedure to the patient, all pros and cons were explained, all questions were answered. The patient signed the consent and then she was placed in the cardiac catheterization laboratory. Groin was prepped in SL fashion local anesthesia was used. Sheath placed in the right radial artery, [place] catheter was advanced to the left ventricular cavity, pressure was measured, pullback LV to aorta was done, engage the right and left coronary system, angiogram was done. At the end of the procedure the sheath was removed. Vascular band was used FINDINGS: Hemodynamics LV 110/9, end-diastolic pressure of 9 Aorta 130/73 mean of 75 ANATOMY: Left Main is free of obstructive disease Left Anterior Descending is free of obstructive disease Left Circumflex is free of obstructive disease Right Coronary Artery is dominant artery with mild disease nonobstructive disease LV Gram was not done, pressure was measured CONCLUSION: Mild coronary artery disease nonobstructive disease Normal left ventricular end-diastolic pressure DISCUSSION AND RECOMMENDATION: Abnormal stress test is probably due to extracardiac attenuation or paced rhythm. Anesthesia Type: Conscious Sedation Estimated blood loss (mL): 10 ml Contrast Amount: 23 ml Total Radiation Dose: 145 mGy Post-Procedure Diagnosis Post-operative diagnosis: Coronary artery disease Ventricular tachycardia Hypertension Hyperlipidemia PEDRO VICKERS MD May 14, 2022 08:43
[~2022-05-14 09:00] MED LIST changes: +HEParin (CATH LAB) 2,000 ML IV ONE; +HEParin 1000 UNIT/ML (10ML VIAL) FOR BOLUS ONE; +LIDOCAINE 1% INJ 20 ML VIAL ONE; +MIDAZOLAM 5 MG/5 ML (VERSED) VIAL ONE; +NITRO DRIP 25000 MCG/D5W 250 ML IV ONE; +NS IV 1000 ML 1,000 ML IV SCH; +NS IV 1000 ML 1,000 ML ONE; -REGADENOSON 0.4 MG/5 ML SYR (LEXISCAN) IV ONE; +VERAPAMIL 5 MG/2 ML (CALAN) VIAL IV ONE; +fentaNYL INJ 100 MCG/2 ML AMP ONE
== END 2022-05-14 11:00 | disposition home or self-care (01) ==
LOC: CATH 09:00 → SDC 09:01 → CATH 11:00
PROVIDERS: ATTEND Internal Medicine Cardiovascular Disease
DX: I25.10 Atherosclerotic heart disease of native coronary artery without angina pectoris (principal); I47.20 Ventricular tachycardia, unspecified; I10 Essential (primary) hypertension; E78.2 Mixed hyperlipidemia; E66.9 Obesity, unspecified; I34.0 Nonrheumatic mitral (valve) insufficiency; Z79.82 Long term (current) use of aspirin; I27.20 Pulmonary hypertension, unspecified; E89.0 Postprocedural hypothyroidism; I65.23 Occlusion and stenosis of bilateral carotid arteries; Z79.890 Hormone replacement therapy; Z68.33 Body mass index [BMI] 33.0-33.9, adult
CPT/HCPCS: 71045; 80053; 80061; 81000; 85027; 85610; 85730; 87081; 87088; 93005; 93458; C1894; 36415

== ENCOUNTER 2022-06-11 05:40 | Outpatient (CLI) | payer OTHER ==
[~2022-06-11] VITALS: Ht 165.1 cm; Wt 91.6 kg
[~2022-06-11 05:40] MED LIST changes: -HEParin (CATH LAB) 2,000 ML IV ONE; -HEParin 1000 UNIT/ML (10ML VIAL) FOR BOLUS ONE; -LIDOCAINE 1% INJ 20 ML VIAL ONE; -MIDAZOLAM 5 MG/5 ML (VERSED) VIAL ONE; -NITRO DRIP 25000 MCG/D5W 250 ML IV ONE; -NS IV 1000 ML 1,000 ML IV SCH; -NS IV 1000 ML 1,000 ML ONE; -VERAPAMIL 5 MG/2 ML (CALAN) VIAL IV ONE; -fentaNYL INJ 100 MCG/2 ML AMP ONE
== END 2022-06-13 12:36 | disposition home or self-care (01) ==
LOC: PREOP 05:40
PROVIDERS: ATTEND Surgery
DX: Z01.818 Encounter for other preprocedural examination (principal)

== ENCOUNTER 2022-06-24 09:06 | Day surgery (SDC) | payer OTHER ==
[~2022-06-24] VITALS: Ht 165.1 cm; Wt 91.6 kg
[2022-06-24] MEDS ORDERED: LACTATED RINGERS 1,000 ML IV STA (09:07)
[2022-06-24 09:25] VITALS: BP 131/69
[2022-06-24] MEDS ORDERED: PROPOFOL INJECTION 50 ML IV ONE (10:05)
--- NOTE | 2022-06-24 10:25 | Progress Note-Post Operative ---
Post-Operative Progess Note Surgeon (s)/Machine Plaster Mixer (s) Surgeon SORAIDA VANCE DO Machine Plaster Mixer: n/a Pre-Operative Diagnosis family history colon cancer Post-Operative Diagnosis colon polyps Procedure & Operative Findings Date of Procedure 06/24/22 Procedure Performed/Findings colonoscopy with hot biopsy polypectomy x2 Anesthesia Type per first assist Estimated Blood Loss Estimated blood loss (mL): none Specimens/Packing Specimens Removed colon polyps SORAIDA VANCE DO Jun 24, 2022 10:25
--- NOTE | 2022-06-24 10:27 | Discharge Inst-Simple/Standard ---
Discharge Inst-Standard Reconcile Patient Problems Problems Reviewed?: Yes Patient Instructions/Follow Up Plan of Care/Instructions/FU: F/u with Dr. Guevara in 2 weeks Activity as Tolerated: Yes Discharge Diet: No Restrictions, Regular Diet SORAIDA GUEVARA DO Jun 24, 2022 10:27
--- NOTE | 2022-06-24 10:28 | Anesthesia-General Post-Op ---
MAC Patient Condition Mental Status/LOC: Same as Preop Cardiovascular: Satisfactory Nausea/Vomiting: Absent Respiratory: Satisfactory Pain: Controlled Complications: Absent Post Op Complications Complications None Follow Up Care/Instructions Patient Instructions None needed. Anesthesiology Discharge Order Discharge Order Patient is doing well, no complaints, stable vital signs, no apparent adverse anesthesia problems. No complications reported per nursing. ABDULLAHI STUBBS CRNA Jun 24, 2022 10:28
[2022-06-24 10:30] VITALS: BP 106/59
[2022-06-24 10:35] VITALS: BP 107/56
[2022-06-24 10:50] VITALS: BP 112/67
--- NOTE | 2022-06-24 18:06 | OPERATIVE REPORT ---
DATE OF SERVICE: 06/24/2022 PREOPERATIVE DIAGNOSIS: Family history of colon cancer. POSTOPERATIVE DIAGNOSIS: Colon polyps. PROCEDURE: Colonoscopy with hot biopsy polypectomy x2. SURGEON: Soraida Guevara DO ANESTHESIA: Per BIOMEDICAL EQUIPMENT SPECIALIST. ESTIMATED BLOOD LOSS: None. COMPLICATIONS: None. INDICATIONS: The patient is a 61-year-old female, needing screening colonoscopy due to family history. She understands risks and benefits of procedure and wished to proceed. Consent was signed and in chart. DESCRIPTION OF PROCEDURE: The patient was taken to endoscopy suite, placed in left lateral recumbent position. Timeout was performed. Digital rectal exam was performed. No palpable polyps, masses or ulcerations. Scope was inserted in the rectum, advanced all the way to the cecum with minimal difficulty. Prep was adequate. Scope was slowly retracted back. No polyps, masses or ulcerations within the cecum, ascending and transverse colon. The descending colon had 2 polyps present, which hot biopsy polypectomies were performed. Scope was then continuously retracted back. No polyps, masses or ulcerations noted in the remainder of the descending and sigmoid colon. Once in the rectum, scope was retroflexed noting no other pathology. Scope was returned to its normal position, slowly withdrawn until completely removed. The patient tolerated the procedure well, no complications, taken to recovery room in stable condition. RECOMMENDATIONS: The patient will follow up in 2 weeks to discuss pathology results. She will need repeat colonoscopy in 5 years. Any issues before that, be seen at that time. Job ID: [id number] DocumentID: [id number] Dictated Date: 06/24/2022 10:26:43 Financial Institution Vice President Date: 06/24/2022 18:04:00 Dictated By: SORAIDA GUEVARA DO
== END 2022-06-24 10:58 | disposition home or self-care (01) ==
LOC: ENDO 09:06
PROVIDERS: ATTEND Surgery
DX: Z12.11 Encounter for screening for malignant neoplasm of colon (principal); D12.4 Benign neoplasm of descending colon; K63.5 Polyp of colon; Z80.0 Family history of malignant neoplasm of digestive organs; E66.9 Obesity, unspecified; Z68.33 Body mass index [BMI] 33.0-33.9, adult; Z95.810 Presence of automatic (implantable) cardiac defibrillator

== ENCOUNTER → 2022-09-18 | Outpatient (CLI) | payer OTHER ==
--- NOTE | 2022-09-19 11:09 | Diagnostic Imaging Report ---
INDICATION: Routine screening COMPARISON is made with prior mammograms from 09/16/2021 and 09/12/2020. 2-D and 3-D bilateral screening mammography was performed CAD. Both breasts are heterogeneously dense, limiting the sensitivity of mammography. Pacemaker battery pack overlies the upper and posterior aspect of the left breast. The parenchymal pattern is stable. No mass or malignant-appearing microcalcifications are seen. IMPRESSION: BI-RADS Category 1 No mammographic features suspicious for malignancy are identified. ACR BI-RADS Category 1: Negative. Result letter will be mailed to the patient. Note: At least 10% of breast cancer is not imaged by mammography. Dictated by: Dictated on workstation # [id number]
== END ==
LOC: RAD 10:15
PROVIDERS: ATTEND Obstetrics & Gynecology
DX: Z12.31 Encounter for screening mammogram for malignant neoplasm of breast (principal)
CPT/HCPCS: 77063; 77067